=== PATIENT | male | born 1980 | race African-American/Black ===

== ENCOUNTER 2024-12-29 09:43 | Emergency (ER) | payer BC ==
--- OUTSIDE RECORDS SUMMARY | 2024-12-29 09:47 | XMS REPORT | Continuity of Care Document ---
Author Name Unknown Address [address] [facility] [place] [address] [facility] thconnect Address [address] [facility] [address] [place] [address] Care Team Providers Care Translator Deaf Name Role Phone Lisa Lafleur MD Primary Care Physician [phone] Elkin Toney Attending Clinician Unavailable Lisa Gonzales Attending Clinician + [phone] Peter Lai MD Attending Clinician + [phone] LISA TELLEZ Attending Clinician Unavailable Doctor Unassigned, [place] Attending Clinician U Jessica An MD Attending Clinician [phone] JESSICA VALENZUELA Attending Clinician Unavaila JESSICA Sosa Attending Clinician Unavaila marck Lab, Ang - Db Attending Clinician Unavailable Lisa Lafleur MD Attending Clinician [phone] Maryann Harper Attending Clinician [phone] MARYANN VICTORIA Attending Clinician Unavailable LISA LAFLEUR Attending Clinician UnavailDarien Bishop DO Attending Clinician [phone] Elvira Sharma RN Attending Clinician Unavailab Silvio Mendez Attending Clinician [phone] Payers Payer Name Policy Type Policy Number Effective Date Expirati on Date Source [facility] 6 [id number] 2021 00:00:00 [facility] Problems Condition Name Condition Details Condition Category Status Onset Date Resolution Date Last Treatment Date Treating Clinician Comments Source SUNDEEP (obstructi ve sleep apnea) SUNDEEP (obstructi ve sleep apnea) Disease Active 14 00:00: 00 [facility] Morbid obesity Morbid obesity Disease Active 07-24 00:00: 00 [facility] Essential hypertensi on Essential hypertensi on Disease Active 07-20 00:00: 00 [facility] Sleep apnea Sleep apnea in adult Problem [facility] Hyperglyce pepe due to type 2 diabetes mellitus Uncontroll ed type 2 diabetes mellitus with hyperglyce pepe, without long-term current use of insulin Problem [facility] Body mass index 40+ - morbidly obese Body mass index [BMI] 40.0-44.9, adult Problem [facility] [id number] BPH loc w urin obs/LUTS Problem [facility] Mixed hyperlipid emia Mixed hyperlipid emia Problem [facility] [id number] Prostate nodule Problem [facility] Hypertensi on Hypertensi on Problem [facility] [id number] Type 2 diabetes mellitus with hyperglyce pepe, without long-term current use of insulin Problem [facility] [id number] Vitamin D deficiency Problem [facility] [id number] Morbid (severe) obesity due to excess calories Problem [facility] [id number] Type 2 diabetes mellitus with other diabetic kidney complicati on Problem [facility] [id number] Hypogonadi sm in male Problem [facility] Anxiety Anxiety Problem [facility] Allergies, Adverse Reactions, Alerts Allergy Name Allergy Type Status Severity Reaction(s) Onset Date Inactive Date Treating Clinician Comments Source NO KNOWN ALLERGIE S Drug Class Active [facility] Social History Social Habit Start Date Stop Date Quantity Comments Source History of Tobacco Use [facility] Sex Assigned At [facility] Exposure to SARS-CoV-2 (event) 2021-10-23 00:00:00 2021-11-22 09:12:00 Not sure [facility] Alcohol intake 2021-05-25 00:00:00 2021-05-25 00:00:00 .57 /d [facility] History of Social function 2021-05-25 00:00:00 2021-05-25 00:00:00 [facility] Tobacco use and exposure 2016-07-20 00:00:00 2016-07-20 00:00:00 User of smokeless tobacco [facility] Smoking Status Start Date Stop Date Source Unknown if ever smoked [facility] Never Smoker [facility] Medications Ordered Medication Name Filled Medication Name Start Date Stop Date Current Medication? Ordering Clinician Indication Dosage Frequency Signature (SIG) Comments Components Source Ozempic (2 MG/DOSE) 8 MG/3ML Ozempic (2 MG/DOSE) 8 MG/3ML 2023-10 1-15 00:00: 00 No Ozempic (2 MG/DOSE) 8 MG/3ML Flomax 0.4 MG Flomax 0.4 MG 4-06 00:00: 00 No 1{capsu le} QD Flomax 0.4 MG amLODIPine- benazepriL 10-40 mg per capsule 04-17 00:00: 00 Yes [id number] 1{capsu le} Take 1 capsule by mouth daily. MUST COMPLETE LAB WORK FOR FURTHER REFILLS [facility] amLODIPine- benazepriL 10-40 mg per capsule 01-22 00:00: 00 Yes [id number] 1{capsu le} Take 1 capsule by mouth daily. MUST COMPLETE LAB WORK FOR FURTHER REFILLS [facility] metformin ER 500 mg 24 hr tablet 01-22 00:00: 00 Yes [id number] 500mg Take 1 tablet by mouth daily with breakfast. MUST COMPLETE LAB WORK FOR FURTHER REFILLS [facility] ergocalcife rol, vitamin d2, 1,250 mcg (50,000 unit) capsule 01-22 00:00: 00 Yes [id number] 73175H Take 1 capsule by mouth weekly. [facility] rosuvastati n 10 mg tablet 12-14 00:00: 00 Yes [id number] 10mg Take 1 tablet by mouth at bedtime. MUST COMPLETE LAB WORK FOR FURTHER REFILLS [facility] metformin ER 500 mg 24 hr tablet 12-14 00:00: 00 Yes [id number] 500mg Take 1 tablet by mouth daily with breakfast. MUST COMPLETE LAB WORK FOR FURTHER REFILLS [facility] ergocalcife rol, vitamin d2, 1,250 mcg (50,000 unit) capsule 12-14 00:00: 00 Yes [id number] 10820K Take 1 capsule by mouth weekly. [facility] blood sugar diagnostic (ONETOUCH VERIO TEST STRIPS) strip 11-14 00:00: 00 Yes [id number] Check glucose once daily before breakfast; Diagnosis code E11.9 [facility] cyclobenzap rine 10 mg tablet 11-22 00:00: 00 Yes [id number] 10mg Take 1 tablet by mouth 3 (three) times daily. [facility] Blood-Gluco se Meter (ONETOUCH VERIO SYSTEM) [facility] 11-05 00:00: 00 Yes [id number] Check glucose once daily before breakfast; Diagnosis code E11.9 [facility] ONE TOUCH DELICA 33 gauge Misc 0 11-05 00:00: 00 Yes [id number] Check glucose once daily before breakfast; Diagnosis code E11.9 [facility] Blood-Gluco se Meter (ONETOUCH VERIO SYSTEM) [facility] 11-05 00:00: 00 Yes [id number] Check glucose once daily before breakfast; Diagnosis code E11.9 [facility] ONE TOUCH DELICA 33 gauge Misc 0 11-05 00:00: 00 Yes [id number] Check glucose once daily before breakfast; Diagnosis code E11.9 [facility] Metoprolol Tartrate 25 MG Metoprolol Tartrate 25 MG No 1{table t_with_ food} BID Metoprolol Tartrate 25 MG Ergocalcife rol 1.25 MG (94838 UT) Ergocalcife rol 1.25 MG (02601 UT) No 1{capsu le} Ergocalcif rosey 1.25 MG (41665 UT) Synjardy XR 12.5-1000 MG Synjardy XR 12.5-1000 MG No 1{table t_with_ breakfa st} QD Synjardy XR 12.5-1000 MG Rosuvastati n Calcium 10 MG Rosuvastati n Calcium 10 MG No 1{table t} QD Rosuvastat in Calcium 10 MG One Touch Verio n/s One Touch Verio n/s No QD One Touch Verio n/s amLODIPine Besy-Benaze pril HCl 10-40 MG amLODIPine Besy-Benaze pril HCl 10-40 MG No QD amLODIPine Besy-Benaz epril HCl 10-40 MG Escitalopra m Oxalate 10 MG Escitalopra m Oxalate 10 MG No 1{table t} QD Escitalopr am Oxalate 10 MG Immunizations Ordered Immunization Name Filled Immunization Name Date Status Comments Source Boostrix (Tdap) Boostrix (Tdap) Unknown Completed [facility] Boostrix (Tdap) Boostrix (Tdap) Unknown Completed [facility] Boostrix (Tdap) Boostrix (Tdap) Unknown Completed [facility] Boostrix (Tdap) Boostrix (Tdap) Unknown Completed [facility] Boostrix (Tdap) Boostrix (Tdap) Unknown Completed [facility] Boostrix (Tdap) Boostrix (Tdap) Unknown Completed [facility] Boostrix (Tdap) Boostrix (Tdap) Unknown Completed [facility] Boostrix (Tdap) Boostrix (Tdap) Unknown Completed [facility] Boostrix (Tdap) Boostrix (Tdap) Unknown Completed [facility] Boostrix (Tdap) Boostrix (Tdap) Unknown Completed [facility] Boostrix (Tdap) Boostrix (Tdap) Unknown Completed [facility] Boostrix (Tdap) Boostrix (Tdap) Unknown Completed [facility] Boostrix (Tdap) Boostrix (Tdap) Unknown Completed [facility] Boostrix (Tdap) Boostrix (Tdap) Unknown Completed [facility] Boostrix (Tdap) Boostrix (Tdap) Unknown Completed [facility] Boostrix (Tdap) Boostrix (Tdap) Unknown Completed [facility] Boostrix (Tdap) Boostrix (Tdap) Unknown Completed [facility] Boostrix (Tdap) Boostrix (Tdap) Unknown Completed [facility] Vital Signs Vital Name Observation Time Observation Value Comments S ource height 2024-09-11 08:30:00 71 [in_i] Commo n [facility] weight 2024-09-11 08:30:00 291.4 [lb_av] Co mmon [facility] temperature 2024-09-11 08:30:00 97.3 [degF] Com mon [facility] bmi 2024-09-11 08:30:00 40.64 kg/m2 Comm on [facility] oximetry 2024-09-11 08:30:00 98 % Commo n [facility] respiratory rate 2024-09-11 08:30:00 18 /min [facility] blood pressure systolic 2024-09-11 08:30:00 137 mm[Hg] [facility] blood pressure diastolic 2024-09-11 08:30:00 77 mm[Hg] Common [facility] height 2024-05-11 08:30:00 71 [in_i] Commo n [facility] weight 2024-05-11 08:30:00 276.0 [lb_av] Co mmon [facility] temperature 2024-05-11 08:30:00 97.6 [degF] Com mon [facility] bmi 2024-05-11 08:30:00 38.49 kg/m2 Comm on [facility] oximetry 2024-05-11 08:30:00 98 % Commo n [facility] respiratory rate 2024-05-11 08:30:00 18 /min Common [facility] blood pressure systolic 2024-05-11 08:30:00 126 mm[Hg] [facility] blood [facility] diastolic 2024-05-11 08:30:00 75 mm[Hg] Common [facility] height 2024-05-11 08:30:00 71 [in_i] Commo n [facility] weight 2024-05-11 08:30:00 276.0 [lb_av] Co [facility] temperature 2024-05-11 08:30:00 97.6 [degF] Com [facility] bmi 2024-05-11 08:30:00 38.49 kg/m2 Comm on [facility] oximetry 2024-05-11 08:30:00 98 % Commo n [facility] respiratory rate 2024-05-11 08:30:00 18 /min [facility] blood pressure systolic 2024-05-11 08:30:00 126 mm[Hg] Common [facility] blood pressure diastolic 2024-05-11 08:30:00 75 mm[Hg] Common [facility] height 2024-01-08 08:40:00 71 [in_i] Commo n [facility] weight 2024-01-08 08:40:00 283.0 [lb_av] Co [facility] temperature 2024-01-08 08:40:00 97.4 [degF] Com [facility] bmi 2024-01-08 08:40:00 39.47 kg/m2 Comm on [facility] oximetry 2024-01-08 08:40:00 97 % Commo n [facility] respiratory rate 2024-01-08 08:40:00 18 /min Common [facility] blood pressure systolic 2024-01-08 08:40:00 130 mm[Hg] [facility] blood pressure diastolic 2024-01-08 08:40:00 77 mm[Hg] Common [facility] height 2023-09-10 08:40:00 71 [in_i] Commo n [facility] weight 2023-09-10 08:40:00 300 [lb_av] Comm on [facility] bmi 2023-09-10 08:40:00 41.84 kg/m2 Comm on [facility] blood pressure systolic 2023-09-10 08:40:00 135 mm[Hg] [facility] blood pressure diastolic 2023-09-10 08:40:00 78 mm[Hg] Common [facility] height 2023-06-10 08:50:00 71 [in_i] Commo n [facility] weight 2023-06-10 08:50:00 324.8 [lb_av] Co mmon [facility] temperature 2023-06-10 08:50:00 97.1 [degF] Com mon [facility] bmi 2023-06-10 08:50:00 45.3 kg/m2 Commo n [facility] oximetry 2023-06-10 08:50:00 96 % Commo n [facility] respiratory rate 2023-06-10 08:50:00 16 /min Common [facility] blood pressure systolic 2023-06-10 08:50:00 134 mm[Hg] [facility] blood pressure diastolic 2023-06-10 08:50:00 76 mm[Hg] Common [facility] blood pressure diastolic 2023-03-07 13:00:00 86 mm[Hg] Common [facility] height 2023-03-07 13:00:00 71 [in_i] Commo n [facility] weight 2023-03-07 13:00:00 339 [lb_av] Comm on [facility] temperature 2023-03-07 13:00:00 97.0 [degF] Com mon [facility] bmi 2023-03-07 13:00:00 47.28 kg/m2 Comm on [facility] oximetry 2023-03-07 13:00:00 96 % Commo n [facility] respiratory rate 2023-03-07 13:00:00 16 /min [facility] blood pressure systolic 2023-03-07 13:00:00 138 mm[Hg] Common [facility] height 2023-01-31 08:30:00 71 [in_i] Commo n [facility] weight 2023-01-31 08:30:00 330.4 [lb_av] Co mmon [facility] temperature 2023-01-31 08:30:00 97.9 [degF] Com [facility] bmi 2023-01-31 08:30:00 46.08 kg/m2 Comm on [facility] oximetry 2023-01-31 08:30:00 98 % Commo n [facility] respiratory rate 2023-01-31 08:30:00 18 /min Common [facility] blood pressure systolic 2023-01-31 08:30:00 161 mm[Hg] [facility] blood pressure diastolic 2023-01-31 08:30:00 88 mm[Hg] [facility] Procedures Procedure Date / Time Performed Performing Clinician Source PVR 2023-01-31 00:00:00 [facility] 2022-01-23 05:01:00 Do ctor Unassigned, [place] [facility] Encounters Start Date/Time End Date/Time Encounter Type Admission Type Attending Clinicians Care Facility Care Department Encounter ID Source 2024-09-09 09:44:01 [facility] [id number] [facility] 2024-01-06 16:19:01 [facility] [id number] [facility] 2023-09-06 08:11:00 [facility] [id number] [facility] 2023-06-10 08:40:01 [facility] [id number] [facility] 2023-01-31 08:12:02 [facility] [id number] [facility] 2024-12-10 00:00:00 2024-12-10 00:00:00 (WEB) STLC STLC [id number] [facility] 2024-11-06 00:00:00 2024-11-06 00:00:00 (WEB) STLC STLMLC [id number] [facility] 2024-09-11 00:00:00 2024-09-11 00:00:00 OFFICE VISIT ESTAB PT LEVEL 4 STLC STLC [id number] [facility] 2024-07-24 00:00:00 2024-07-24 00:00:00 (WEB) STLMLC STLMLC [id number] [facility] 2024-05-21 00:00:00 2024-05-21 00:00:00 (WEB) STLMLC STLMLC [id number] [facility] 2024-05-11 00:00:00 2024-05-11 00:00:00 (WELLNESS) Wellness [facility] STLC [id number] [facility] 2024-03-19 00:00:00 2024-03-19 00:00:00 (WEB) STLMLC STLMLC [id number] [facility] 2024-02-20 00:00:00 2024-02-20 00:00:00 (WEB) STLMLC STLMLC [id number] [facility] 2024-02-18 00:00:00 2024-02-18 00:00:00 (WEB) STLMLC STLMLC [id number] [facility] 2024-01-08 00:00:00 2024-01-08 00:00:00 OFFICE VISIT ESTAB PT LEVEL 4 STLMLC STLMLC [id number] [facility] 2023-09-20 00:00:00 2023-09-20 00:00:00 (WEB) STLMLC STLMLC [id number] [facility] 2023-09-10 00:00:00 2023-09-10 00:00:00 OFFICE VISIT ESTAB PT LEVEL 4 STLMLC STLMLC [id number] [facility] 2023-08-30 00:00:00 2023-08-30 00:00:00 (WEB) STLMLC STLMLC [id number] [facility] 2023-08-13 00:00:00 2023-08-13 00:00:00 (WEB) STLMLC STLMLC [id number] [facility] 2023-07-26 00:00:00 2023-07-26 00:00:00 (TEL) STLMLC STLMLC [id number] [facility] 2023-07-25 00:00:00 2023-07-25 00:00:00 (TEL) STLMLC STLMLC [id number] [facility] 2023-07-25 00:00:00 2023-07-25 00:00:00 (WEB) STLMLC STLMLC [id number] [facility] 2023-06-10 00:00:00 2023-06-10 00:00:00 (WELLNESS) Wellness Visit STLMLC STLMLC [id number] [facility] 2023-06-10 00:00:00 2023-06-10 00:00:00 (WEB) STLMLC STLMLC [id number] [facility] 2023-06-10 00:00:00 2023-06-10 00:00:00 (TEL) STLMLC STLMLC [id number] [facility] 2023-05-17 00:00:00 2023-05-17 00:00:00 (WEB) STLMLC STLMLC [id number] [facility] 2023-03-07 00:00:00 2023-03-07 00:00:00 OFFICE VISIT ESTAB PT LEVEL 4 STLMLC STLMLC [id number] [facility] 2023-01-31 00:00:00 2023-01-31 00:00:00 OFFICE VISIT NEW PT LEVEL 4 STLMLC STLMLC [id number] [facility] 2023-01-31 00:00:00 2023-01-31 00:00:00 (TEL) STLMLC STLMLC [id number] [facility] 2022-07-09 00:00:00 2022-07-09 00:00:00 [facility] .2.840.114 350.1.13.10 4.2.7.2.686 [id number] [facility] 2022-07-09 00:00:00 2022-07-09 00:00:00 Refill Peter Lai [facility] 1.2.840.114 350.1.13.10 4.2.7.2.686 [id number] [facility] 2022-04-17 00:00:00 2022-04-17 00:00:00 [facility] 1.2840.114 350.1.13.10 4.2.7.2.686 [id number] [facility] 2022-02-02 10:30:00 2022-02-02 10:30:00 Outpatient R LISA TELLEZ [facility] [id number] [facility] 2022-01-31 00:00:00 2022-01-31 00:00:00 [facility] 1.2840.114 350.1.13.10 4.2.7.2.686 [id number] [facility] 2022-01-24 00:00:00 2022-01-24 00:00:00 [facility] 1.2840.114 350.1.13.10 4.2.7.2.686 [id number] [facility] 2022-01-23 00:00:00 2022-01-23 00:00:00 Orders Only Doctor Unassigned, [place] [facility] 1.2840.114 350.1.13.10 4.2.7.2.686 [id number] [facility] 2022-01-19 00:00:00 2022-01-19 00:00:00 [facility] 1.2840.114 350.1.13.10 4.2.7.2.686 [id number] [facility] 2022-01-19 00:00:00 2022-01-19 00:00:00 [facility] 1.2840.114 350.1.13.10 4.2.7.2.686 [id number] [facility] 2021-12-14 00:00:00 2021-12-14 00:00:00 Refill Rosalinda Lisa [facility] 1..840.114 350.1.13.10 4.2.7.2.686 [id number] [facility] 2021-11-23 00:00:00 2021-11-23 00:00:00 Orders Only Doctor Unassigned, [place] [facility] 1..840.114 350.1.13.10 4.2.7.2.686 [id number] [facility] 2021-11-22 09:00:00 2021-11-22 09:20:00 [facility] 1..840.114 350.1.13.10 4.2.7.2.686 [id number] [facility] 2021-11-22 09:00:00 2021-11-22 09:00:00 Outpatient R JESSICA VALENZUELA STRAHIL [facility] [id number] [facility] 2021-11-14 12:30:00 2021-11-14 12:45:00 Mogul Operator [facility] 1..840.114 350.1.13.10 4.2.7.2.686 [id number] [facility] 2021-11-14 10:30:00 2021-11-14 11:20:26 Outpatient R LISA TELLEZ [facility] [id number] [facility] 2021-11-14 10:30:00 2021-11-14 11:20:26 [facility] 1..840.114 350.1.13.10 4.2.7.2.686 [id number] [facility] 2021-11-14 10:30:00 2021-11-14 11:20:26 Outpatient LISA RICE [facility] [id number] [facility] 2021-11-10 10:00:00 2021-11-10 10:00:00 Outpatient Radhika LISA TELLEZ [facility] [id number] [facility] 2021-11-10 00:00:00 2021-11-10 00:00:00 Refill Lisa Lafleur A [facility] PATITO?[facility] OFF[facility] 1..840.114 350.1.13.10 4.2.7.2.686 [id number] [facility] 2021-11-08 00:00:00 2021-11-08 00:00:00 Patient Secure Msg Doctor Unassigned, [place] [facility] PATITO?[facility] 1..840.114 350.1.13.10 4.2.7.2.686 [id number] [facility] 2021-09-15 00:00:00 2021-09-15 00:00:00 Telephone Lisa Lafleur Wilder [facility] JACKIE [facility] OFFICE BUILDING ONE .840.114 350.1.13.10 4.2.7.2.686 [id number] [facility] 2021-09-15 00:00:00 2021-09-15 00:00:00 Refill Lisa Lafleur A [facility] JACKIE [facility] OFFICE [facility] ONE ..840.114 350.1.13.10 4.2.7.2.686 [id number] [facility] 2021-09-12 00:00:00 2021-09-12 00:00:00 Refill Lisa Lafleur [facility] OFF[facility]ILD[facility] ONE 1.2.840.114 350.1.13.10 4.2.7.2.686 [id number] [facility] 2021-08-23 00:00:00 2021-08-23 00:00:00 Refill Salma Lafleurful Wilder [facility] Office Building One 1.2.840.114 350.1.13.10 4.2.7.2.686 [id number] [facility] 2021-07-17 00:00:00 2021-07-17 00:00:00 RefLisa Colon [facility] Office Building One 1.2.840.114 350.1.13.10 4.2.7.2.686 [id number] [facility] 2021-07-15 00:00:00 2021-07-15 00:00:00 Refill Lisa Lafleur [facility] Office Building One 1.2.840.114 350.1.13.10 4.2.7.2.686 [id number] [facility] 2021-06-16 00:00:00 2021-06-16 00:00:00 RefSalma Colonful Wilder [facility] Office Building One 1.2.840.114 350.1.13.10 4.2.7.2.686 [id number] [facility] 2021-06-15 00:00:00 2021-06-15 00:00:00 Refill HockleySalma lenzful Wilder [facility] Office Building One 1.2840.114 350.1.13.10 4.2.7.2.686 [id number] 044 [id number] [facility] 2021-06-14 00:00:00 2021-06-14 00:00:00 Refill HockleySalma lenzful A [facility] Office [facility] One 1.114 350.1.13.10 4.2.7.2.686 [id number] 044 [id number] [facility] 2021-05-29 00:00:00 2021-05-29 00:00:00 Patient Secure Msg Doctor Unassigned, [place] [facility] 1..114 350.1.13.10 4.2.7.2.686 [id number] [id number] [facility] 2021-05-25 09:10:10 2021-05-25 09:44:52 Office Visit Maryann Victoria [facility] Office [facility] One 1..114 350.1.13.10 4.2.7.2.686 [id number] [facility] 2021-05-25 09:00:00 2021-05-25 09:00:00 Outpatient R MARYANN VICTORIA [facility] [id number] [facility] 2021-05-09 00:00:00 2021-05-09 00:00:00 Refill Ridge Lafleurdiful A [facility] Office Building One ..114 350.1.13.10 4.2.7.2.686 [id number] [id number] [facility] 2021-05-09 00:00:00 2021-05-09 00:00:00 Refill HockleyRidge lenzdiful [facility] One ..114 350.1.13.10 4.2.7.2.686 [id number] 044 [id number] [facility] 2021-05-09 00:00:00 2021-05-09 00:00:00 Refill LorenaRidge lenzdiful A [facility] Office Building One 1.2.840.114 350.1.13.10 4.2.7.2.686 [id number] 044 [id number] [facility] 2021-05-09 00:00:00 2021-05-09 00:00:00 Refill LorenaRidge lenzdiful A [facility] Office Building One 1.2840.114 350.1.13.10 4.2.7.2.686 [id number] 044 [id number] [facility] 2021-04-18 00:00:00 2021-04-18 00:00:00 Refill LorenaRidgediful A [facility] Office Building One 1.840.114 350.1.13.10 4.2.7.2.686 [id number] 044 [id number] [facility] 2021-04-18 00:00:00 2021-04-18 00:00:00 Refill HockleyRidgediful A [facility] Office [facility] One 1.0.114 350.1.13.10 4.2.7.2.686 [id number] 044 [id number] [facility] 2021-04-18 00:00:00 2021-04-18 00:00:00 Refill LorenaRidgediful A [facility] Office [facility] One 1.2840.114 350.1.13.10 4.2.7.2.686 [id number] 044 [id number] [facility] 2021-04-04 08:15:00 2021-04-04 08:15:00 Outpatient R LORENA, RIDGEDIFUL [facility] [id number] [facility] 2021-03-24 00:00:00 2021-03-24 00:00:00 Refill HockleyRidgediful A [facility] Office Building One 1.840.114 350.1.13.10 4.2.7.2.686 [id number] 044 [id number] [facility] 2021-03-10 00:00:00 2021-03-10 00:00:00 Refill Salma Lafleurful A [facility] Office [facility] One 1.2.840.114 350.1.13.10 4.2.7.2.686 [id number] [facility] 2021-02-28 00:00:00 2021-02-28 00:00:00 Refill Salma Lafleurful A [facility] Office [facility] One 1.2840.114 350.1.13.10 4.2.7.2.686 [id number] 044 [id number] [facility] 2021-02-28 00:00:00 2021-02-28 00:00:00 Refill Salma Lafleurful Wilder [facility] Office Building One 1.2840.114 350.1.13.10 4.2.7.2.686 [id number] 044 [id number] [facility] 2021-02-03 00:00:00 2021-02-03 00:00:00 Refill Salma Lafleurful A [facility] Office Building One 1.2840.114 350.1.13.10 4.2.7.2.686 [id number] 044 [id number] [facility] 2021-02-03 00:00:00 2021-02-03 00:00:00 Refill Salma Lafleurful Wilder [facility] Office Building One 1.2.840.114 350.1.13.10 4.2.7.2.686 [id number] 044 [id number] [facility] 2021-01-13 00:00:00 2021-01-13 00:00:00 Refill LorenaSalma lenzful Wilder [facility] Office [facility] One 1.2840.114 350.1.13.10 4.2.7.2.686 [id number] 044 [id number] [facility] 2021-01-12 00:00:00 2021-01-12 00:00:00 Patient Outreach Darien Mooney [facility] 1.84.114 350.1.13.10 4.2.7.2.686 [id number] [facility] 2020-12-29 08:15:00 2020-12-29 08:15:00 Outpatient R LISA LAFLEUR [facility] [id number] [facility] 2020-12-05 00:00:00 2020-12-05 00:00:00 Refill Lisa Lafleur [facility] Office Building One 1.840.114 350.1.13.10 4.2.7.2.686 [id number] 044 [id number] [facility] 2020-09-13 00:00:00 2020-09-13 00:00:00 Refill Lisa Lafleur [facility] Office Building One 1.840.114 350.1.13.10 4.2.7.2.686 [id number] 044 [id number] [facility] 2020-02-10 09:30:00 2020-02-10 09:30:00 Outpatient R JESSICA VALENZUELA STRAHIL [facility] [id number] [facility] 2020-02-04 06:52:34 2020-02-04 08:24:50 Telemedici ne Visit Lisa Lafleur [facility] Building 1.840.114 350.1.13.10 4.2.7.2.686 [id number] [facility] 2020-02-04 08:00:00 2020-02-04 08:00:00 Outpatient R LISA LAFLEUR [facility] [id number] [facility] 2020-02-01 00:00:00 2020-02-01 00:00:00 Telephone Lisa Lafleur [facility] nal Building 1.840.114 350.1.13.10 4.2.7.2.686 [id number] 044 [id number] [facility] 2020-01-24 20:00:00 2020-01-24 20:00:00 [facility] [id number] [facility] 2020-01-13 09:40:16 2020-01-13 10:10:16 Office Visit Jessica Valenzuela [facility] Building 1.840.114 350.1.13.10 4.2.7.2.686 [id number] [facility] 2020-01-13 10:00:00 2020-01-13 10:00:00 Outpatient R JESSICA VALENZUELA STRAFLMaxine [facility] [id number] [facility] 2019-12-11 00:00:00 2019-12-11 00:00:00 Telephone Lisa Lafleur [facility] Office [facility] One 1..114 350.1.13.10 4.2.7.2.686 [id number] 044 [id number] [facility] 2019-12-02 00:00:00 2019-12-02 00:00:00 Patient Secure g Lisa Lafleur [facility] Office Building One 1..114 350.1.13.10 4.2.7.2.686 [id number] 044 [id number] [facility] 2019-12-02 00:00:00 2019-12-02 00:00:00 Patient Secure Lisa Paul [facility] Office Building One 1.840.114 350.1.13.10 4.2.7.2.686 [id number] 044 [id number] [facility] 2019-11-25 11:45:00 2019-11-25 23:59:00 Hospital Encounter Maryann Victoria [facility] 1.2.840.114 350.1.13.10 4.2.7.2.686 [id number] [facility] 2019-11-25 10:49:42 2019-11-25 11:29:03 Office Visit Maryann Victoria [facility] Office Building One 1.2.840.114 350.1.13.10 4.2.7.2.686 [id number] 044 [id number] [facility] 2019-11-25 00:00:00 2019-11-25 00:00:00 Telephone Elvira Sharma [facility] 1.2.840.114 350.1.13.10 4.2.7.2.686 [id number] [facility] 2019-11-25 00:00:00 2019-11-25 00:00:00 Telephone Lisa Lafleur [facility] Office Building One 1.2.840.114 350.1.13.10 4.2.7.2.686 [id number] 044 [id number] [facility] 2019-11-25 00:00:00 2019-11-25 00:00:00 Patient Secure Msg Lisa Lafleur [facility] Office Building One 1.2.840.114 350.1.13.10 4.2.7.2.686 [id number] 044 [id number] [facility] 2019-11-22 21:49:40 2019-11-23 00:07:00 Emergency Silvio Espana [facility] 1.2.840.114 350.1.13.10 4.2.7.2.686 [id number] [facility] 2019-11-19 00:00:00 2019-11-19 00:00:00 Patient Secure Lisa Paul [facility] Office Building One 1.2.840.114 350.1.13.10 4.2.7.2.686 [id number] [id number] [facility] 2019-11-19 00:00:00 2019-11-19 00:00:00 Patient Secure Lisa Paul [facility] Office Building One 1.2.840.114 350.1.13.10 4.2.7.2.686 [id number] 044 [id number] [facility] 2019-11-19 00:00:00 2019-11-19 00:00:00 Telephone Lisa Lafleur [facility] Office Building One 1.2.840.114 350.1.13.10 4.2.7.2.686 [id number] 044 [id number] [facility] 2019-11-15 00:00:00 2019-11-15 00:00:00 Case Management Lisa Lafleur [facility] Office Building One 1.2.840.114 350.1.13.10 4.2.7.2.686 [id number] 044 [id number] [facility] Results Test Description Test Time Test Comments Results Result Co mments Source CBC W/AUTO [id number] 00:00:00* Test Item Value Reference Range Interpretation Comme nts NUCLEATED RBCS (test code = 38434-7) 0.0 /100 WBC'S See_Comment [Automated [employer]] The system which generated this result transmitted reference range: 0.0 /100 WBC'S. The reference range was not used to interpret this result as normal/abnormal. ABSOLUTE EOSINOPHILS (test code = 26881-7) 0.18 K/UL See_Comment [Automated [employer]] The system which generated this result transmitted reference range: 0.00-0.50 K/UL. The reference range was not used to interpret this result as normal/abnormal. ABSOLUTE LYMPHOCYTES (test code = 86649-8) 2.13 K/UL See_Comment [Automated messa ge] The system which generated this result transmitted reference range: 1.00-4.00 K/UL. The reference range was not used to interpret this result as normal/abnormal. ABSOLUTE MONOCYTES (test code = 96093-6) 0.64 K/UL See_Comment [Automated messa ge] The system which generated this result transmitted reference range: 0.20-1.00 K/UL. The reference range was not used to interpret this result as normal/abnormal. ABSOLUTE NEUTROPHILS (test code = 94591-8) 1.84 K/UL See_Comment [Automated messa ge] The system which generated this result transmitted reference range: 1.50-7.50 K/UL. The reference range was not used to interpret this result as normal/abnormal. BASOPHILS (test code = 21276-1) 1.4 % EOSINOPHILS (test code = 09520-5) 3.7 % HEMATOCRIT (test code = 88960-3) 45.5 % See_Comment [Automated messa ge] The system which generated this result transmitted reference range: 40.0-51.0 %. The reference range was not used to interpret this result as normal/abnormal. HEMOGLOBIN (test code = 718-7) 14.8 G/DL See_Comment [Automated messa ge] The system which generated this result transmitted reference range: 13.5-17.0 G/DL. The reference range was not used to interpret this result as normal/abnormal. LYMPHOCYTES (test code = 31313-8) 43.6 % MCH (test code = 17368-7) 28.7 PG See_Comment [Automated messa ge] The system which generated this result transmitted reference range: 25.0-33.0 PG. The reference range was not used to interpret this result as normal/abnormal. MCHC (test code = 92628-9) 32.5 G/DL See_Comment [Automated messa ge] The system which generated this result transmitted reference range: 31.0-36.0 G/DL. The reference range was not used to interpret this result as normal/abnormal. MCV (test code = 48960-1) 88.2 fL See_Comment [Automated messa ge] The system which generated this result transmitted reference range: 80.0-99.0 fL. The reference range was not used to interpret this result as normal/abnormal. MONOCYTES (test code = 92841-0) 13.1 % NEUTROPHILS (test code = 71351-0) 37.6 % PLATELET COUNT (test code = 99079-5) 334 K/UL See_Comment [Automated messa ge] The system which generated this result transmitted reference range: 130-400 K/UL. The reference range was not used to interpret this result as normal/abnormal. RBC (test code = 44748-8) 5.16 M/UL See_Comment [Automated messa ge] The system which generated this result transmitted reference range: 4.50-6.10 M/UL. The reference range was not used to interpret this result as normal/abnormal. RDW (test code = 61777-2) 13.9 % See_Comment [Automated messa ge] The system which generated this result transmitted reference range: 11.5-15.0 %. The reference range was not used to interpret this result as normal/abnormal. WBC (test code = 25219-2) 4.9 K/UL See_Comment [Automated messa ge] The system which generated this result transmitted reference range: 3.5-11.0 K/UL. The reference range was not used to interpret this result as normal/abnormal. CBC W/AUTO [id number] 00:00:00* Test Item Value Reference Range Interpretation Comme nts NUCLEATED RBCS (test code = 82752-5) 0.0 /100 WBC'S See_Comment [Automated messa ge] The system which generated this result transmitted reference range: 0.0 /100 WBC'S. The reference range was not used to interpret this result as normal/abnormal. ABSOLUTE EOSINOPHILS (test code = 82414-0) 0.21 K/UL See_Comment [Automated messa ge] The system which generated this result transmitted reference range: 0.00-0.50 K/UL. The reference range was not used to interpret this result as normal/abnormal. ABSOLUTE LYMPHOCYTES (test code = 75588-5) 2.10 K/UL See_Comment [Automated messa ge] The system which generated this result transmitted reference range: 1.00-4.00 K/UL. The reference range was not used to interpret this result as normal/abnormal. ABSOLUTE MONOCYTES (test code = 53708-2) 0.87 K/UL See_Comment [Automated messa ge] The system which generated this result transmitted reference range: 0.20-1.00 K/UL. The reference range was not used to interpret this result as normal/abnormal. ABSOLUTE NEUTROPHILS (test code = 66442-0) 3.42 K/UL See_Comment [Automated messa ge] The system which generated this result transmitted reference range: 1.50-7.50 K/UL. The reference range was not used to interpret this result as normal/abnormal. BASOPHILS (test code = 83370-0) 0.6 % EOSINOPHILS (test code = 15923-9) 3.2 % HEMATOCRIT (test code = 63640-1) 42.1 % See_Comment [Automated messa ge] The system which generated this result transmitted reference range: 40.0-51.0 %. The reference range was not used to interpret this result as normal/abnormal. HEMOGLOBIN (test code = 718-7) 14.5 G/DL See_Comment [Automated messa ge] The system which generated this result transmitted reference range: 13.5-17.0 G/DL. The reference range was not used to interpret this result as normal/abnormal. LYMPHOCYTES (test code = 36956-5) 31.5 % MCH (test code = 75167-8) 29.5 PG See_Comment [Automated messa ge] The system which generated this result transmitted reference range: 25.0-33.0 PG. The reference range was not used to interpret this result as normal/abnormal. MCHC (test code = 17855-0) 34.4 G/DL See_Comment [Automated messa ge] The system which generated this result transmitted reference range: 31.0-36.0 G/DL. The reference range was not used to interpret this result as normal/abnormal. MCV (test code = 73656-3) 85.6 fL See_Comment [Automated messa ge] The system which generated this result transmitted reference range: 80.0-99.0 fL. The reference range was not used to interpret this result as normal/abnormal. MONOCYTES (test code = 90307-8) 13.1 % NEUTROPHILS (test code = 63161-1) 51.3 % PLATELET COUNT (test code = 25080-2) 269 K/UL See_Comment [Automated messa ge] The system which generated this result transmitted reference range: 130-400 K/UL. The reference range was not used to interpret this result as normal/abnormal. RBC (test code = 24323-3) 4.92 M/UL See_Comment [Automated [employer]] The system which generated this result transmitted reference range: 4.50-6.10 M/UL. The reference range was not used to interpret this result as normal/abnormal. RDW (test code = 58375-6) 13.9 % See_Comment [Automated [employer]] The system which generated this result transmitted reference range: 11.5-15.0 %. The reference range was not used to interpret this result as normal/abnormal. WBC (test code = 20450-5) 6.7 K/UL See_Comment [Automated [employer]] The system which generated this result transmitted reference range: 3.5-11.0 K/UL. The reference range was not used to interpret this result as normal/abnormal.
[2024-12-29 10:35] LABS: Absolute Eosinophils 0.2 K/uL (0-0.5); Absolute Lymphocytes (CBC) 1.4 K/uL (0.7-4.9); Absolute Neutrophil 5.8 K/uL (1.8-8.0); Basophils % 0.4 % (0-1.3); Eosinophils % 2.1 % (0-4.4); Hematocrit 43.5 % (39.6-49.0); Hemoglobin 15.3 g/dL (13.6-17.9); Lymphocytes % 16.5 % (15.3-44.8); MCH 30.8 pg (27.0-35.0); MCHC 35.1 g/dL (32.0-36.0); MCV 87.6 fL (80-100); MPV 7.7 fL (7.6-11.3); Monocytes % 11.7 % (3.3-12.3); Neutrophils % 69.3 % (41.7-73.7); Nucleated Red Blood Cells % 0.1 % (0-0); Platelets 240 thou/uL (152-406); RBC Red Blood Cell Count 4.96 M/uL (4.33-5.43); Red Cell Distribution Width 14.7 % (12.1-15.2)
--- NOTE | 2024-12-29 10:49 | RAD REPORT ---
EXAMINATION: US LEFT LOWER EXTREMITY VENOUS DOPPLER CLINICAL INDICATION: PAIN TECHNIQUE: Complete bilateral duplex sonography of the LEFT lower extremity veins was performed. The examination included compression for vein patency, color Doppler imaging and flow augmentation in response to distal compression of the distal external iliac, common femoral, femoral, popliteal, tibi al, and great and small saphenous veins. COMPARISON: No prior exam. FINDINGS: Duplex sonography testing of the veins of the LEFT lower extremity was performed. Color flow imaging shows all veins to be compressible with [id number] color filling. Pulsatile and phasic flow is present within all lower extremity deep and superficial veins examined. IMPRESSION: There is no deep vein or superficial vein thrombosis.
[2024-12-29 10:51] LABS: Anion Gap 6.6 mEq/L (5.0-15.0); Bilirubin Total 0.4 mg/dL (0.2-1.0); Globulin 3.9 g/dL (2.3-3.5); Potassium 3.6 mEq/L (3.5-5.1); Protein, Total 7.9 g/dL (6.4-8.2)
--- NOTE | 2024-12-29 11:06 | RAD REPORT ---
EXAMINATION: XR LEFT HIP CLINICAL INDICATION: . PAIN TECHNIQUE: Multiple views of the left hip were obtained. COMPARISON: No prior exam. FINDINGS: No acute fracture or dislocation is seen. 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 Nonemergent MRI left hip follow-up would be advised.
--- NOTE | 2024-12-29 11:15 | EDPHYS ---
Physician Documentation [facility] Name: Angelita Valdez Age: 44 yrs Sex: Male : 1980 Arrival Date: 12/29/2024 Time: 09:43 Bed 16 Private MD: ED Physician Edin Castro HPI: 12/29 10:49 This 44 yrs old Black Male presents to ER via Ambulatory with complaints of Leg Pain, ms3 Hip Pain. 10:49 44-year-old male with past medical history of diabetes, hypertension, hyperlipidemia ms3 presents to the emergency department for left hip pain that radiates down his left leg that has been ongoing for 2 days. Patient states the discomfort is worse with walking. Patient states his sensation is tight and he rates the discomfort an 8/10. Patient notes he is on a statin and is concerned this could be causing his problems.. Historical: - Allergies: 10:07 No Known Allergies; ss - PMHx: 10:07 Diabetes mellitus; Hypertensive disorder; Hypercholesterolemia; ss - Immunization history:: Adult Immunizations up to date. - Infectious Disease History:: Denies. - Social history:: Smoking status: Patient denies any tobacco usage or history of. ROS: 11:14 Constitutional: Negative for fever, and chills. Cardiovascular: Negative for chest ms3 pain, and palpitations. Respiratory: Negative for shortness of breath, cough, wheezing, and pleuritic chest pain, Abdomen/GI: Negative for abdominal pain, nausea, vomiting, diarrhea, and constipation, 11:14 Skin: Negative for injury, rash, and discoloration, 11:14 MS/extremity: Positive for left hip pain, Exam: 11:14 Constitutional: This is a well developed, well nourished patient who is awake, alert, ms3 and in no acute distress. Chest/axilla: Normal chest wall appearance and motion. Nontender with no deformity. Cardiovascular: Regular rate and rhythm with a normal S1 and S2. No gallops, murmurs, or rubs. Normal PMI, no JVD. No pulse deficits. Respiratory: Lungs have equal breath sounds bilaterally, clear to auscultation and percussion. No rales, rhonchi or wheezes noted. No increased work of breathing, no retractions or nasal flaring. Abdomen/GI: Soft, non-tender, with normal bowel sounds. No distension or tympany. No guarding or rebound. No evidence of tenderness throughout. Skin: Warm, dry with normal turgor. Normal color with no rashes, no lesions, and no evidence of cellulitis. 11:14 Musculoskeletal/extremity: Extremities: noted in the left leg: tenderness, Vital Signs: 10:04 BP 159 / 100; Pulse 85; Resp 16; Temp 98.4; Pulse Ox 100% on R/A; Weight 124.74 kg; ss Height 5 ft. 11 in. ; Pain 8; 10:04 Body Mass Index 38.35 (124.74 kg, 180.34 cm) ss 10:04 Pain Scale: Adult ss MDM: 10:29 Medical Screening Exam initiated ms3 11:14 Differential diagnosis: tendonitis, arthritis vs DVTvs Rhabdo. Data reviewed: vital ms3 signs, nurses notes, lab test result(s), radiologic studies, and as a result, I will discharge patient. Counseling: I had a detailed discussion with the patient and/or guardian regarding the historical points, exam findings, and any diagnostic results supporting the discharge/admit diagnosis, lab results, radiology results, the need for outpatient follow up, to return to the emergency department if symptoms worsen or persist or if there are any questions or concerns that arise at home. ED course: Discussed labs and imaging with patient. Labs do not reveal rhabdo, imaging does not reveal arthritis or fracture. Ultrasound does not reveal DVT. Patient to follow-up with primary care physician 2 to 3 days. Discussed outpatient MRI of hip due to cam deformity with patient. He understands and agrees with plan. All questions were answered. Return precautions discussed include worsening symptoms, or any other concerns. On reevaluation patient is alert, in no apparent distress, nontoxic-appearing, speaking full sentences.. 12/29 10:08 Order name: CBC with Diff; Complete Time: 10:59 ms3 12/29 10:08 Order name: CMP; Complete Time: 10:59 ms3 12/29 10:08 Order name: CK; Complete Time: 10:59 ms3 12/29 10:09 Order name: Hip Left 2 View XRAY; Complete Time: 11:07 ms3 12/29 10:09 Order name: Extremity Venous [employer] US; Complete Time: 10:59 ms3 Administered Medications: No medications were administered Disposition Summary: 12/29/24 11:14 Discharge Ordered Notes: Location: Home ms3 Condition: Stable ms3 Diagnosis - Pain in left hip ms3 - Pain in left leg ms3 Followup: ms3 - With: Elkin Toney DO - When: 2 - 3 days - Reason: Recheck today's complaints Discharge Instructions: - Discharge Summary Sheet ms3 - Musculoskeletal Pain ms3 Forms: - Medication Reconciliation Form ms3 - Antibiotic Education ms3 - Prescription Opioid Use ms3 - Patient Portal Instructions ms3 - Leadership Thank You Letter ms3 Signatures: Dispatcher [employer] EDMS Mckenzie Terry, RN RN ss Anna Tam RN RN ap3 Edin Castro DO DO ms3 Corrections: (The following items were deleted from the chart) 10:08 10:08 CBC+H.LAB.BRZ ordered. EDMS EDMS 10:08 10:08 COMPREHENSIVE METABOLIC PANEL+C.LAB.BRZ ordered. EDMS EDMS 10:08 10:08 CREATINE PHOSPHOKINASE+C.LAB.BRZ ordered. EDMS EDMS 10:09 10:09 Extremity Venous Uni Ltd+US.RAD.BRZ ordered. EDMS EDMS
--- NOTE | 2024-12-29 11:15 | ER ---
Nurse's Notes [facility] Name: Angelita Valdez Age: 44 yrs Sex: Male : 1980 Arrival Date: 12/29/2024 Time: 09:43 Bed 16 Private MD: Diagnosis: Pain in left hip;Pain in left leg Presentation: 12/29 10:04 Chief complaint: Patient states: pain/ tingling to L upper buttock that radiates down L ss leg x 2 days. Coronavirus screen: Client denies travel out of the [place] in the last 14 days. Ebola Screen: Patient denies exposure to infectious person. Patient denies travel to an Ebola-affected area in the 21 days before illness onset. Initial Sepsis Screen: Does the patient meet any 2 criteria? No. Patient's initial sepsis screen is negative. Does the patient have a suspected source of infection? No. Patient's initial sepsis screen is negative. Risk Assessment: Do you want to hurt yourself or someone else? Patient reports no desire to harm self or others. Onset of symptoms was December 27, 2024. 10:04 Method Of Arrival: Ambulatory ss 10:04 Acuity: BREANNA 3 ss Historical: - Allergies: 10:07 No Known Allergies; ss - PMHx: 10:07 Diabetes mellitus; Hypertensive disorder; Hypercholesterolemia; ss - Immunization history:: Adult Immunizations up to date. - Infectious Disease History:: Denies. - Social history:: Smoking status: Patient denies any tobacco usage or history of. Screenin:30 [facility] ED Fall Risk Assessment (Adult) History of falling in the last 3 months, ap3 including since admission No falls in past 3 months (0 pts) Confusion or Disorientation No (0 pts) Intoxicated or Sedated No (0 pts) Impaired Gait No (0 pts) Mobility Assist Device Used No (0 pt) Altered Elimination No (0 pt) Score/Fall Risk Level 0 - 2 = Low Risk Oriented to surroundings, Maintained a safe environment, Educated pt \T\ family on fall prevention, incl call for assistance when getting out of bed, Assessed \T\ reinforced patient's understanding of fall precautions, Hourly rounding (assess needs \T\ fall precautionary measures) done, Used ambulatory aids as needed (educated on \T\ assisted with). Abuse screen: Denies threats or abuse. Nutritional screening: No deficits noted. Tuberculosis screening: No symptoms or risk factors identified. Assessment: 10:29 General: Appears in no apparent distress. comfortable, Behavior is calm, cooperative, ap3 appropriate for age. Pain: Complains of pain in left hip and left leg Pain currently is 8 out of 10 on a pain scale. Neuro: Level of Consciousness is awake, alert, obeys commands, Oriented to person, place, time, situation, Appropriate for age. Cardiovascular: Patient's skin is warm and dry. Respiratory: Airway is patent Respiratory effort is even, unlabored, Respiratory pattern is regular, symmetrical. 11:13 Reassessment: Dr. Castro at bedside discussing results and POC. [email or web address] Vital Signs: 10:04 BP 159 / 100; Pulse 85; Resp 16; Temp 98.4; Pulse Ox 100% on R/A; Weight 124.74 kg; ss Height 5 ft. 11 in. ; Pain 8/10; 10:04 Body Mass Index 38.35 (124.74 kg, 180.34 cm) ss 10:04 Pain Scale: Adult ss ED Course: 09:45 Patient arrived in ED. cj3 09:49 Edin Castro DO is Attending Physician. ms3 10:07 Triage completed. ss 10:07 Arm band placed on right wrist. ss 10:29 Anna Tam, MAX is Primary Nurse. ap3 10:29 Initial lab(s) drawn, by ms, sent to lab. Inserted saline lock: 22 gauge in right ap3 forearm, using aseptic technique. Blood collected. Flushed with 10 mL NS. 10:29 CK Sent. ap3 10:29 CMP Sent. ap3 10:29 CBC with Diff Sent. ap3 10:36 Extremity Venous Uni Ltd US In Process Unspecified. EDMS 10:45 Hip Left 2 View XRAY In Process Unspecified. EDMS 11:14 Elkin Toney DO is Referral Physician. ms3 11:55 Patient has correct armband on for positive identification. Provided Education on: ap3 discharge instructions . 11:55 No provider procedures requiring assistance completed. IV discontinued, intact, ap3 bleeding controlled, No redness/swelling at site. Pressure dressing applied. Administered Medications: No medications were administered Medication: 11:55 VIS not applicable for this client. ap3 Outcome: 11:14 Discharge ordered by . ms3 11:55 Discharged to home ambulatory, ap3 11:55 Condition: good 11:55 Discharge instructions given to patient, Instructed on discharge instructions, follow up and referral plans. Demonstrated understanding of instructions, follow-up care, 11:56 Patient left the ED. ap3 Signatures: Dispatcher [employer] EDMS Mckenzie Terry RN RN ss Rigo Deras RN RN jl7 Anna Tam RN RN ap3 Edin Castro DO DO ms3 Savannah Valdez3 Corrections: (The following items were deleted from the chart) 10:10 10:04 Acuity: BREANNA 4 ss ss
[2024-12-29 12:13] VITALS: BP 159/100; TEMP 98.4; O2SAT 100
== END 2024-12-29 11:56 | disposition home or self-care (01) ==
LOC: ER 09:43
DX: M25.552 Pain in left hip (principal); M79.605 Pain in left leg
CPT/HCPCS: 36415; 80053; 82550; 85025; 93971